=== PATIENT | male | born 1965 | race Caucasian/White ===

== ENCOUNTER 2021-08-05 09:52 | Day surgery (SDC) | payer MEDICAID ==
[2021-07-30 11:38] LABS: BASOPHILS % (AUTO) 0.5 % (0-1); EOSINOPHILS # (AUTO) 0.1 X10'3 (0-0.9); EOSINOPHILS % (AUTO) 0.9 % (0-6); LYMPHOCYTES # (AUTO) 2.1 X10'3 (1.1-4.8); LYMPHOCYTES % (AUTO) 30.5 % (21-51); MEAN CORPUSCULAR HEMOGLOBIN 34.2 PG (27.0-31.0); MEAN CORPUSCULAR HGB CONC 34.8 g/dL (33.0-36.5); MEAN CORPUSCULAR VOLUME 98.3 FL (78-98); MEAN PLATELET VOLUME 10.2 FL (7.4-10.4); MONOCYTES # (AUTO) 0.5 X10'3 (0-0.9); MONOCYTES % (AUTO) 7.5 % (2-12); NEUTROPHILS # (AUTO) 4.2 X10'3 (1.8-7.7); NEUTROPHILS % (AUTO) 60.6 % (42-75); PRE OP HEMATOCRIT 46.6 % (42.0-52.0); PRE OP HEMOGLOBIN 16.2 g/dL (14.0-17.9); PRE OP PLATELET COUNT 215 X10'3 (140-440); RED BLOOD COUNT 4.74 X10'6 (4.70-6.10); RED CELL DISTRIBUTION WIDTH 13.4 % (11.5-14.5)
[2021-07-30 11:41] LABS: CLARITY,URINE CLEAR (Clear); COLOR,URINE YELLOW (Yellow); GLUCOSE, URINE NEGATIVE (Neg); KETONES,URINE NEGATIVE (Neg); LEUKOCYTE ESTERASE ,URINE NEGATIVE (Neg); NITRITES, URINE NEGATIVE (Neg); OCCULT BLOOD,URINE NEGATIVE (Neg); PROTEIN,URINE NEGATIVE (Neg); UROBILINOGEN,URINE 0.2 E.U/dL (0.2-1.0)
[2021-07-30 11:46] LABS: UA COLLECTION TYPE CLN CATCH MIDSTREAM
[2021-07-30 11:50] LABS: APTT 29 SECONDS (22-32)
[2021-07-30 12:09] LABS: ALBUMIN 3.8 G/DL (3.4-5.0); ALKALINE PHOSPHATASE 63 IU/L (46-116); BLOOD UREA NITROGEN 12 MG/DL (7-18); BUN/CREATININE RATIO 11.5 (5.4-32.0); CALCIUM 8.7 MG/DL (8.5-10.1); CHLORIDE 103 MMOL/L (99-107); CREATININE 1.04 MG/DL (0.60-1.10); PRE OP ALT 21 U/L (30-65); PRE OP ANION GAP 10 (8-16); PRE OP AST 25 U/L (10-37); PRE OP BILIRUB, TOTAL 0.5 MG/DL (0.0-1.0); PRE OP GLUCOSE 92 MG/DL (70-104); PRE OP POTASSIUM 4.1 MMOL/L (3.4-5.1); PRE OP SODIUM 137 MMOL/L (135-145); TOTAL CARBON DIOXIDE 23.6 MMOL/L (24-32); TOTAL PROTEIN 7.7 G/DL (6.4-8.2); eGFR 74 ML/MIN
[2021-08-05] VITALS (7 sets, daily range): BP systolic 111–148; BP diastolic 82–115
[~2021-08-05] VITALS: Ht 182.9 cm; Wt 105.0 kg
[~2021-08-05 09:52] MED LIST: ALBU6.7H9 INH; BUDE10.2 INH; cefazolin/dext.iso 2gm/50ml IV ONE; famotidine 20mg tablet PO ONE
[2021-08-05] MEDS ORDERED: BUPIVAcaine 0.5% inj/PF 60 ML ONE (10:24)
[2021-08-05] MEDS ORDERED: BUPIVACAINE liposomal/PF 13.3 MG/ML vial IM ONE (10:24)
[2021-08-05] MEDS ORDERED: midazolam 1 mg/ML 2ml injection ONE (12:21)
[2021-08-05] MEDS ORDERED: fentaNYL /PF 50mcg/ml 5ml ampule ONE (12:21)
[2021-08-05] MEDS ORDERED: rocuronium 10mg/ml inj IV ONE (12:28)
[2021-08-05] MEDS ORDERED: ondansetron/PF 4mg/2ml inj ONE (12:28)
[2021-08-05] MEDS ORDERED: hydrALAZINE 20mg/ml inj. IV PRN (12:50)
[2021-08-05] MEDS ORDERED: morphine 2 MG/ML inj. syringe IV PRN (12:50)
[2021-08-05] MEDS ORDERED: ringers solution, lacted 1,000 ML IV SCH (12:50)
[2021-08-05] MEDS ORDERED: fentaNYL/PF 50MCG/1 ML 2ML syringe IV PRN ×2 (12:50)
[2021-08-05] MEDS ORDERED: labetalol 20mg/4ml (5mg/ml) syringe IV PRN (12:50)
[2021-08-05] MEDS ORDERED: ondansetron/PF 4mg/2ml inj IV PRN (12:50)
[2021-08-05] MEDS ORDERED: morphine 4 MG/ML inj SYRINge IV PRN (12:50)
[2021-08-05] MEDS ORDERED: labetalol 20mg/4ml (5mg/ml) syringe IV ONE (12:58)
--- NOTE | 2021-08-05 14:16 | NUR ---
Received from OR via [facility] , accompanied by Anesthesiologist ALEX and report given by Anesthesiolgist. PATIENT WITH 3 ABDOMINAL BANDAIDS PRESENT THAT ARE ALL CDI. VSS. PAIN AT A TOLERABLE LEVEL AT THIS TIME ACCORDING TO THE PATIENT. PATIENT VSS AT THIS TIME. Addendum: 08/05/21 at 1424 by Fernando Villela RN, RN Amended: Links added.
--- NOTE | 2021-08-05 15:06 | NUR ---
ALL DISCHARGE CRITERIA HAS BEEN MET. VSS, PAIN AT A TOLERABLE LEVEL, VOIDING AND ABLE TO SAFELY AMBULATE AND TRANSFER SELF. IV TAKEN OUT WITHOUT ANY COMPLICATIONS. ALL DISCHARGE INSTRUCTIONS COVERED WITH PATIENT AND ALL QUESTIONS ANSWERED. PATIENT TAKEN OUT VIA WHEELCHAIR TO PERSONAL VEHICLE WHERE SON DROVE PATIENT HOME. DENIES PAIN. DRESSINGS X3 TO ABDOMEN ARE ALL CDI. Addendum: 08/05/21 at 1514 by Fernando Villela RN, RN Amended: Links added.
[2021-08-06] MEDS ORDERED: ringers solution, lacted 1,000 ML IV SCH (05:00)
== END 2021-08-05 15:06 | disposition home or self-care (01) ==
LOC: PAS 09:52
PROVIDERS: ATTEND Surgery
DX: K42.9 Umbilical hernia without obstruction or gangrene (principal); J44.9 Chronic obstructive pulmonary disease, unspecified; F17.290 Nicotine dependence, other tobacco product, uncomplicated; Z79.899 Other long term (current) drug therapy; Z20.822 Contact with and (suspected) exposure to COVID-19; Z79.01 Long term (current) use of anticoagulants
CPT/HCPCS: 36415; 49652; 64488; 71046; 80053; 81003; 82948; 85025; 85610; 85730; 93005; C1781; C9290; J2250; J2405; J3010; J3490; J7030; J7120; S0020; S2900; U0003; U0005; Z7506; Z7508; Z7512; A4215; A4618